=== PATIENT | male | born 1945 | race Caucasian/White ===

== ENCOUNTER 2018-03-06 06:49 | Inpatient (IN) ==
[2018-03-06] MEDS ORDERED: CLOPIDOGREL 75 MG TABLET PO STA (07:14)
[2018-03-06] MEDS ORDERED: ENOXAPARIN 100 MG/ML SYRINGE SUBCUT STA (07:15)
[2018-03-06] MEDS ORDERED: fentaNYL 100 MCG/2 ML VIAL IV STA (07:15)
[2018-03-06] MEDS ORDERED: ONDANSETRON 4 MG/2 ML VIAL IV STA (07:15)
[2018-03-06] MEDS ORDERED: NITROGLYCERIN 2% OINT 1 INCH/GM PACK TOP STA (07:15)
[2018-03-06 07:23] LABS: Basophils # 0.1 10*3/uL (0.0-0.2); Basophils % 0.5 % (0.0-0.8); Eosinophils # 0.1 10*3/uL (0.0-0.87); Eosinophils % 0.9 % (0.00-10.9); Hematocrit 38.3 VOL% (42.0-52.0); Hemoglobin 13.5 GM/DL (14.0-18.0); Lymphocytes # 1.4 10*3/uL (1.4-4.0); Lymphocytes % 13.2 % (21.2-54.2); Mean Corpuscular HGB Conc 35.2 GM/DL (32-36); Mean Corpuscular Hemoglobin 31 PG (27-34); Mean Corpuscular Volume 87.8 FL (87-102); Mean Platelet Volume 9.5 FL (9.6-12.0); Monocytes % 10.1 % (1.7-12.7); Neutrophils # 7.7 10*3/uL (1.4-7.4); Neutrophils % 74.3 % (38.7-73.9); Platelet Count 185 T/CUMM (130-400); Red Blood Count 4.36 MC/CUMM (3.8-5.5); Red Cell Distribution Width 12.4 % (9.3-17.3); White Blood Count 10.3 T/CUMM (4-12)
[2018-03-06 07:33] LABS: PT Patient Result 10.7 SECS; Partial Thromboplastin Time 28.3 SECS (0-40)
[2018-03-06 07:41] LABS: Albumin 3.6 G/DL (3.4-5.0); Bilirubin,Total 0.4 MG/DL (0.2-1.0); Calcium 9.1 MG/DL (8.5-10.1); Osmolality,Calculated 253.4 MOS/KG (273-304); Potassium 4.2 MMOL/L (3.5-5.1); Total Protein 6.9 G/DL (6.4-8.3)
[2018-03-06] MEDS ORDERED: diphenhydrAMINE CAP 25 MG CAPSULE PO PRN (08:19)
[2018-03-06] MEDS ORDERED: MAGNESIUM SULF RIDER 4 GM in PREMIX 1 EACH IV PRN (08:19)
[2018-03-06] MEDS ORDERED: MAGNESIUM SULF RIDER 2 GM in PREMIX 1 EACH IV PRN (08:19)
[2018-03-06] MEDS ORDERED: POTASSIUM CHLORIDE 20 MEQ TABLET PO PRN (08:19)
[2018-03-06] MEDS ORDERED: DOCUSATE SODIUM 100 MG CAPSULE PO PRN (08:19)
[2018-03-06] MEDS ORDERED: ZALEPLON 5 MG CAPSULE PO PRN (08:19)
[2018-03-06] MEDS ORDERED: guaiFENesin/DM ER 600-30 MG TABLET PO PRN (08:19)
[2018-03-06] MEDS ORDERED: ONDANSETRON 4 MG/2 ML VIAL IV PRN (08:19)
[2018-03-06] MEDS ORDERED: BISACODYL 5 MG TABLET PO PRN (08:19)
[2018-03-06] MEDS ORDERED: PROMETHAZINE 25 MG TABLET PO PRN (08:19)
[2018-03-06] MEDS ORDERED: PANTOPRAZOLE 40 MG TABLET PO SCH (09:00)
[2018-03-06] MEDS: ACETAMINOPHEN 325 MG TABLET PO SCH ×2 (10:50→21:15)
[2018-03-06] MEDS: amLODIPine 5 MG TABLET PO SCH (10:51)
[2018-03-06] MEDS ORDERED: NITROGLYCERIN 2% OINT 1 INCH/GM PACK TOP SCH (12:00)
[2018-03-06 13:11] LABS: Risk Ratio 6.52; Thyroid Stimulating Hormone 4.18 uIU/ml (0.358-3.74); VLDL CHOLESTEROL 106.6 MG/DL
[2018-03-06 13:16] LABS: Troponin I < 0.015 NG/ML (0.00-0.045)
[2018-03-06] MEDS: LIDOCAINE 5% PATCH TRANSDERM SCH (14:43)
[2018-03-06] MEDS ORDERED: methylPREDNISolone ACETATE 40 MG/1 ML VIAL MISC INJ ONE (16:02)
[2018-03-06] MEDS ORDERED: LIDOCAINE 1% 20 ML VIAL MISC INJ ONE (16:05)
[2018-03-06] MEDS: MAGNESIUM GLUCONATE 200 MG/ML 30 ML/BOTTLE PO SCH ×2 (16:15→21:14)
[2018-03-06 18:21] LABS: Apearance,Urine CLEAR (Clear); Bilirubin,Urine Negative (Negative); Blood, Urine Negative (Negative); Glucose,Urine (UA) Negative (Negative); Hyaline Casts,Urine 3 /LPF (0-3); Ketones,Urine Negative (Negative); Mucus,Urine Occasional /LPF (Occasional); Nitrite,Urine Negative (Negative); Protein,Urine 100 MG/DL; RBC,Urine 1 /HPF (0-4); Squamous Epithelial Cell,Urine Occasional /HPF (0-10); Urine Color Yellow (Yellow); Urine Specific Gravity 1.021 (1.001-1.035); Urine Urobilinogen < 2.0 EU/DL (0.2-1.0); WBC,Urine 1 /HPF (0-6)
[2018-03-06] MEDS ORDERED: diphenhydrAMINE CAP 25 MG CAPSULE PO SCH (21:00)
[2018-03-06] MEDS ORDERED: ISOSORBIDE MONONITRATE 30 MG TABLET PO SCH (21:00)
[2018-03-06] MEDS ORDERED: MULTIVITAMIN (CENTRUM) TABLET PO SCH (21:00)
[2018-03-06] MEDS ORDERED: FEBUXOSTAT 80 MG TABLET PO SCH (21:00)
[2018-03-06] MEDS ORDERED: MAGNESIUM OXIDE 400 MG TABLET PO SCH (21:00)
[2018-03-06] MEDS ORDERED: DILTIAZEM CD 120 MG CAPSULE PO SCH (21:00)
[2018-03-06] MEDS: FAMOTIDINE 20 MG TABLET PO SCH (21:13)
[2018-03-06] MEDS: NEBIVOLOL 10 MG TABLET PO SCH (21:13)
[2018-03-07 05:09] LABS: Basophils % 0.3 % (0.0-0.8); Eosinophils % 0.3 % (0.00-10.9); Hematocrit 34.7 VOL% (42.0-52.0); Hemoglobin 11.9 GM/DL (14.0-18.0); Immature Granulocytes % 1.2 %; Immature Granulocytes Absolute 0.09 #; Lymphocytes # 0.9 10*3/uL (1.4-4.0); Lymphocytes % 11.3 % (21.2-54.2); Mean Corpuscular HGB Conc 34.3 GM/DL (32-36); Mean Corpuscular Hemoglobin 31 PG (27-34); Mean Platelet Volume 9.8 FL (9.6-12.0); Monocytes # 0.9 10*3/uL (0.11-0.8); Monocytes % 11.5 % (1.7-12.7); Neutrophils # 5.9 10*3/uL (1.4-7.4); Neutrophils % 75.4 % (38.7-73.9); Platelet Count 172 T/CUMM (130-400); Red Cell Distribution Width 12.3 % (9.3-17.3); White Blood Count 7.8 T/CUMM (4-12)
[2018-03-07 05:28] LABS: Albumin 3.1 G/DL (3.4-5.0); Bilirubin,Total 1.1 MG/DL (0.2-1.0); Calcium 8.5 MG/DL (8.5-10.1); Osmolality,Calculated 251.6 MOS/KG (273-304); Potassium 4.6 MMOL/L (3.5-5.1); Total Protein 6.6 G/DL (6.4-8.3)
[2018-03-07] MEDS ORDERED: LEVOTHYROXINE 88 MCG TABLET PO SCH (07:00)
[2018-03-07 08:38] VITALS: BP 184/83
[2018-03-07] MEDS ORDERED: CYANOCOBALAMIN 500 MCG TABLET PO SCH (09:00)
[2018-03-07] MEDS ORDERED: CLOPIDOGREL 75 MG TABLET PO SCH (09:00)
[2018-03-07] MEDS ORDERED: ENOXAPARIN 40 MG/0.4 ML SYRINGE SUBCUT SCH (09:00)
[2018-03-07] MEDS ORDERED: OMEGA 3 ACID ETHYL ESTERS 1 GM CAPSULE PO SCH (09:00)
[2018-03-07] MEDS ORDERED: ASPIRIN 325 MG TABLET PO SCH (09:00)
[2018-03-07] MEDS ORDERED: buPROPion SR 150 MG TABLET PO SCH (09:00)
[2018-03-07] MEDS: MAGNESIUM GLUCONATE 200 MG/ML 30 ML/BOTTLE PO SCH (09:17)
[2018-03-07] MEDS: LIDOCAINE 5% PATCH TRANSDERM SCH (09:17)
[2018-03-07] MEDS: NEBIVOLOL 10 MG TABLET PO SCH (09:18)
[2018-03-07] MEDS: FAMOTIDINE 20 MG TABLET PO SCH (09:18)
[2018-03-07] MEDS: amLODIPine 5 MG TABLET PO SCH (09:19)
[2018-03-07] MEDS: ACETAMINOPHEN 325 MG TABLET PO SCH (09:20)
== END 2018-03-07 12:05 | disposition home or self-care (01) | DRG 313 ==
LOC: N.EDINP 06:49 → N.ED 06:49 → N.TELEN 09:02
PROVIDERS: ADMIT Internal Medicine Cardiovascular Disease; ATTEND Internal Medicine Cardiovascular Disease

== ENCOUNTER 2020-04-21 08:29 | Inpatient (IN) ==
[2020-04-21 09:12] LABS: Basophils % 0.3 % (0.0-0.8); Eosinophils # 0.1 10*3/uL (0.0-0.87); Hematocrit 37.6 VOL% (42.0-52.0); Hemoglobin 11.8 GM/DL (14.0-18.0); Immature Granulocytes % 0.9 %; Lymphocytes # 1.6 10*3/uL (1.4-4.0); Lymphocytes % 14.1 % (21.2-54.2); Mean Corpuscular HGB Conc 31.4 GM/DL (32-36); Mean Corpuscular Volume 92.2 FL (87-102); Monocytes % 8.9 % (1.7-12.7); Neutrophils % 74.8 % (38.7-73.9); Platelet Count 230 T/CUMM (130-400); Red Blood Count 4.08 MC/CUMM (3.8-5.5); Red Cell Distribution Width 15.6 % (9.3-17.3); White Blood Count 11.6 T/CUMM (4-12)
[2020-04-21 09:23] LABS: Albumin 3.3 G/DL (3.4-5.0); Bilirubin,Total 0.7 MG/DL (0.2-1.0); Calcium 9.9 MG/DL (8.5-10.1); Osmolality,Calculated 274.5 MOS/KG (273-304); Potassium 5.2 MMOL/L (3.5-5.1); Total Protein 7.4 G/DL (6.4-8.3)
[2020-04-21 10:23] LABS: ABG Base Excess 3.3 MMOL/L (-2.5-2.5); ABG HCO3 26.6 MMOL/L (20-26); ABG Oxygen Saturation 61.5 % (95-100); ABG PCO2 51.8 MM HG (35-48); ABG PH 7.367 (7.35-7.45); ABG TCO2 26.8 MMOL/L (23-27)
[2020-04-21 10:25] LABS: ABG PO2 34.7 MM HG (80-95)
[2020-04-21] MEDS ORDERED: ONDANSETRON 4 MG/2 ML VIAL IV PRN (11:18)
[2020-04-21] MEDS ORDERED: GLUCAGON 1 MG VIAL IM PRN (11:18)
[2020-04-21] MEDS ORDERED: ACETAMINOPHEN 325 MG TABLET PO PRN (11:18)
[2020-04-21] MEDS ORDERED: DEXTROSE 50% 25 GM/50 ML VIAL IV PRN (11:18)
[2020-04-21] MEDS ORDERED: cefTRIAXone 1,000 MG in SODIUM CHLORIDE 0.9% 100 ML IV STA (11:29)
[2020-04-21 11:52] LABS: ABG Base Excess 2.6 MMOL/L (-2.5-2.5); ABG HCO3 26.8 MMOL/L (20-26); ABG Oxygen Saturation 98.3 % (95-100); ABG PCO2 44.4 MM HG (35-48); ABG PH 7.405 (7.35-7.45); ABG TCO2 24.7 MMOL/L (23-27)
[2020-04-21] MEDS: AZITHROMYCIN INJ 500 MG in SODIUM CHLORIDE 0.9% 250 ML IV SCH (11:59)
[2020-04-21] MEDS: ENOXAPARIN 30 MG/0.3 ML SYRINGE SUBCUT SCH (12:00)
[2020-04-21] MEDS ORDERED: FUROSEMIDE 40 MG/4 ML VIAL IV STA (12:11)
[2020-04-21] MEDS ORDERED: NITROGLYCERIN SL 0.4 MG TABLET SL PRN (15:54)
[2020-04-21] MEDS: oxyCODONE/ACETAMINOPHEN 5-325 MG TABLET PO SCH (17:11)
[2020-04-21] MEDS: ALBUTEROL/IPRATROPIUM 3 ML NEB RESP TX SCH (19:32)
[2020-04-21] MEDS: ZINC GLUCONATE 50 MG TABLET PO SCH (20:24)
[2020-04-21] MEDS: NEBIVOLOL 10 MG TABLET PO SCH (20:24)
[2020-04-21] MEDS: MAGNESIUM OXIDE 400 MG TABLET PO SCH (20:24)
[2020-04-21] MEDS: DILTIAZEM CD 120 MG CAPSULE PO SCH (20:24)
[2020-04-21] MEDS: ASCORBIC ACID 500 MG TABLET PO SCH (20:25)
[2020-04-21] MEDS: CHOLECALCIFEROL 5,000 UNIT TABLET PO SCH (20:25)
[2020-04-21] MEDS: ISOSORBIDE MONONITRATE 30 MG TABLET PO SCH (20:25)
[2020-04-21] MEDS: MULTIVITAMIN (CENTRUM) TABLET PO SCH (20:26)
[2020-04-21] MEDS: FENOFIBRATE 145 MG TABLET PO SCH (20:26)
[2020-04-21] MEDS: POTASSIUM GLUCONATE 500 MG TABLET PO SCH (20:26)
[2020-04-22] MEDS: ALBUTEROL/IPRATROPIUM 3 ML NEB RESP TX SCH ×4 (00:41→18:45)
[2020-04-22] MEDS: oxyCODONE/ACETAMINOPHEN 5-325 MG TABLET PO SCH ×2 (04:31→15:10)
[2020-04-22 06:13] LABS: Basophils % 0.2 % (0.0-0.8); Eosinophils # 0.1 10*3/uL (0.0-0.87); Eosinophils % 1.4 % (0.00-10.9); Hematocrit 33.1 VOL% (42.0-52.0); Hemoglobin 10.2 GM/DL (14.0-18.0); Immature Granulocytes % 0.7 %; Immature Granulocytes Absolute 0.06 #; Lymphocytes # 1.4 10*3/uL (1.4-4.0); Lymphocytes % 16.7 % (21.2-54.2); Mean Corpuscular HGB Conc 30.8 GM/DL (32-36); Mean Platelet Volume 10.9 FL (9.6-12.0); Platelet Count 218 T/CUMM (130-400); Red Blood Count 3.52 MC/CUMM (3.8-5.5); Red Cell Distribution Width 15.7 % (9.3-17.3); White Blood Count 8.5 T/CUMM (4-12)
[2020-04-22 06:34] LABS: Calcium 9.7 MG/DL (8.5-10.1); Osmolality,Calculated 277.5 MOS/KG (273-304); Potassium 5.1 MMOL/L (3.5-5.1)
[2020-04-22] MEDS: MAGNESIUM OXIDE 400 MG TABLET PO SCH ×2 (08:29→20:56)
[2020-04-22] MEDS: ASCORBIC ACID 500 MG TABLET PO SCH ×2 (08:29→20:57)
[2020-04-22] MEDS: buPROPion SR 150 MG TABLET PO SCH (08:29)
[2020-04-22] MEDS: ZINC GLUCONATE 50 MG TABLET PO SCH ×2 (08:29→20:56)
[2020-04-22] MEDS: NEBIVOLOL 10 MG TABLET PO SCH ×2 (08:30→20:56)
[2020-04-22] MEDS: CHOLECALCIFEROL 5,000 UNIT TABLET PO SCH ×2 (08:30→20:57)
[2020-04-22] MEDS: LEVOTHYROXINE 112 MCG TABLET PO SCH (08:30)
[2020-04-22] MEDS: ASPIRIN CHEW 81 MG TABLET PO SCH (08:30)
[2020-04-22] MEDS: POTASSIUM GLUCONATE 500 MG TABLET PO SCH ×2 (08:32→20:56)
[2020-04-22] MEDS ORDERED: CLOPIDOGREL 75 MG TABLET PO SCH (09:00)
[2020-04-22] MEDS: AZITHROMYCIN INJ 500 MG in SODIUM CHLORIDE 0.9% 250 ML IV SCH (12:00)
[2020-04-22] MEDS: ENOXAPARIN 30 MG/0.3 ML SYRINGE SUBCUT SCH (12:00)
[2020-04-22] MEDS: APIXABAN 5 MG TABLET PO SCH ×2 (13:46→20:57)
[2020-04-22] MEDS: FENOFIBRATE 145 MG TABLET PO SCH (20:56)
[2020-04-22] MEDS: ISOSORBIDE MONONITRATE 30 MG TABLET PO SCH (20:56)
[2020-04-22] MEDS: MULTIVITAMIN (CENTRUM) TABLET PO SCH (20:56)
[2020-04-22] MEDS: DILTIAZEM CD 120 MG CAPSULE PO SCH (20:57)
[2020-04-23] MEDS: ALBUTEROL/IPRATROPIUM 3 ML NEB RESP TX SCH ×3 (00:50→13:15)
[2020-04-23] MEDS: oxyCODONE/ACETAMINOPHEN 5-325 MG TABLET PO SCH (03:58)
[2020-04-23 05:36] LABS: Basophils # 0.1 10*3/uL (0.0-0.2); Basophils % 0.6 % (0.0-0.8); Eosinophils # 0.2 10*3/uL (0.0-0.87); Hematocrit 33.2 VOL% (42.0-52.0); Hemoglobin 10.5 GM/DL (14.0-18.0); Immature Granulocytes % 0.7 %; Immature Granulocytes Absolute 0.06 #; Lymphocytes # 1.3 10*3/uL (1.4-4.0); Lymphocytes % 14.1 % (21.2-54.2); Mean Corpuscular HGB Conc 31.6 GM/DL (32-36); Mean Corpuscular Volume 92.5 FL (87-102); Monocytes % 10.6 % (1.7-12.7); Platelet Count 234 T/CUMM (130-400); Red Blood Count 3.59 MC/CUMM (3.8-5.5); Red Cell Distribution Width 15.4 % (9.3-17.3); White Blood Count 8.9 T/CUMM (4-12)
[2020-04-23 06:02] LABS: Calcium 9.7 MG/DL (8.5-10.1); Osmolality,Calculated 280.5 MOS/KG (273-304); Potassium 5.3 MMOL/L (3.5-5.1)
[2020-04-23] MEDS: MAGNESIUM OXIDE 400 MG TABLET PO SCH (09:17)
[2020-04-23] MEDS: NEBIVOLOL 10 MG TABLET PO SCH (09:17)
[2020-04-23] MEDS: ZINC GLUCONATE 50 MG TABLET PO SCH (09:17)
[2020-04-23] MEDS: ASPIRIN CHEW 81 MG TABLET PO SCH (09:17)
[2020-04-23] MEDS: CHOLECALCIFEROL 5,000 UNIT TABLET PO SCH (09:17)
[2020-04-23] MEDS: LEVOTHYROXINE 112 MCG TABLET PO SCH (09:17)
[2020-04-23] MEDS: ASCORBIC ACID 500 MG TABLET PO SCH (09:18)
[2020-04-23] MEDS: buPROPion SR 150 MG TABLET PO SCH (09:18)
[2020-04-23] MEDS: APIXABAN 5 MG TABLET PO SCH (09:18)
[2020-04-23] MEDS: POTASSIUM GLUCONATE 500 MG TABLET PO SCH (09:19)
[2020-04-23] MEDS: AZITHROMYCIN INJ 500 MG in SODIUM CHLORIDE 0.9% 250 ML IV SCH (11:11)
[2020-04-23 12:13] VITALS: BP 143/76
== END 2020-04-23 15:00 | disposition home or self-care (01) | DRG 291 ==
LOC: N.EDINP 08:29 → N.ED 08:29 → N.TELES 13:39
PROVIDERS: ADMIT Internal Medicine; ATTEND Internal Medicine

== ENCOUNTER 2020-12-20 14:43 | Inpatient (IN) ==
[2020-12-20 15:31] LABS: Basophils % 0.2 % (0.0-0.8); Eosinophils % 0.4 % (0.00-10.9); Hematocrit 38.9 VOL% (42.0-52.0); Hemoglobin 12.2 GM/DL (14.0-18.0); Immature Granulocytes % 0.8 %; Immature Granulocytes Absolute 0.09 #; Lymphocytes # 1.5 10*3/uL (1.4-4.0); Mean Corpuscular HGB Conc 31.4 GM/DL (32-36); Mean Corpuscular Volume 90.9 FL (87-102); Monocytes % 11.4 % (1.7-12.7); Neutrophils % 74.2 % (38.7-73.9); Platelet Count 290 T/CUMM (130-400); Red Blood Count 4.28 MC/CUMM (3.8-5.5); Red Cell Distribution Width 16.2 % (9.3-17.3); White Blood Count 11.4 T/CUMM (4-12)
[2020-12-20 15:51] LABS: Albumin 3.6 G/DL (3.4-5.0); Bilirubin,Total 0.5 MG/DL (0.20-1.00); Calcium 10.7 MG/DL (8.5-10.1); Osmolality,Calculated 272.7 MOS/KG (273-304); Potassium 4.1 MMOL/L (3.5-5.1); Total Protein 8.9 G/DL (6.4-8.2)
[2020-12-20] MEDS ORDERED: ACETAMINOPHEN 325 MG TABLET PO ONE (16:17)
[2020-12-20] MEDS ORDERED: PROMETHAZINE 25 MG/1 ML VIAL IM STA (16:18)
[2020-12-20] MEDS ORDERED: ASPIRIN 325 MG TABLET PO STA (17:13)
[2020-12-20] MEDS ORDERED: DEXTROSE 50% 25 GM/50 ML VIAL IV PRN (17:38)
[2020-12-20] MEDS ORDERED: ONDANSETRON 4 MG/2 ML VIAL IV PRN (17:38)
[2020-12-20] MEDS ORDERED: GLUCAGON 1 MG VIAL IM PRN (17:38)
[2020-12-20] MEDS ORDERED: oxyCODONE/ACETAMINOPHEN 5-325 MG TABLET PO PRN (17:46)
[2020-12-20] MEDS: METOPROLOL TARTRATE 25 MG TABLET PO SCH (20:30)
[2020-12-20] MEDS: ENOXAPARIN 100 MG/ML SYRINGE SUBCUT SCH (20:31)
[2020-12-20] MEDS: DILTIAZEM CD 120 MG CAPSULE PO SCH (20:31)
[2020-12-20] MEDS: hydrALAZINE 20 MG/1 ML VIAL IV PRN (20:32)
[2020-12-20] MEDS ORDERED: ISOSORBIDE MONONITRATE 30 MG TABLET PO SCH (21:00)
[2020-12-21] MEDS: oxyCODONE/ACETAMINOPHEN 5-325 MG TABLET PO PRN ×2 (05:34→17:21)
[2020-12-21 05:43] LABS: Basophils % 0.2 % (0.0-0.8); Eosinophils # 0.1 10*3/uL (0.0-0.87); Eosinophils % 0.5 % (0.00-10.9); Hematocrit 37.2 VOL% (42.0-52.0); Hemoglobin 12.2 GM/DL (14.0-18.0); Immature Granulocytes % 0.8 %; Immature Granulocytes Absolute 0.08 #; Lymphocytes # 1.5 10*3/uL (1.4-4.0); Lymphocytes % 16.1 % (21.2-54.2); Mean Corpuscular HGB Conc 32.8 GM/DL (32-36); Mean Corpuscular Volume 89.6 FL (87-102); Mean Platelet Volume 10.1 FL (9.6-12.0); Monocytes % 10.9 % (1.7-12.7); Neutrophils % 71.5 % (38.7-73.9); Platelet Count 265 T/CUMM (130-400); Red Blood Count 4.15 MC/CUMM (3.8-5.5); White Blood Count 9.5 T/CUMM (4-12)
[2020-12-21 06:21] LABS: Bilirubin,Total 0.5 MG/DL (0.20-1.00); Calcium 10.1 MG/DL (8.5-10.1); Osmolality,Calculated 277.2 MOS/KG (273-304); Risk Ratio 5.68; Thyroid Stimulating Hormone 4.56 uIU/ml (0.358-3.74); VLDL Cholesterol 44.8 MG/DL
[2020-12-21] MEDS: METOPROLOL TARTRATE 25 MG TABLET PO SCH ×2 (09:37→20:47)
[2020-12-21] MEDS: CLOPIDOGREL 75 MG TABLET PO SCH (09:37)
[2020-12-21] MEDS: ENOXAPARIN 100 MG/ML SYRINGE SUBCUT SCH ×2 (09:38→20:48)
[2020-12-21] MEDS: DILTIAZEM CD 120 MG CAPSULE PO SCH (20:47)
[2020-12-21] MEDS ORDERED: allopurinoL 300 MG TABLET PO SCH (21:00)
[2020-12-21] MEDS: ACETAMINOPHEN 325 MG TABLET PO PRN (22:22)
[2020-12-22] MEDS: hydrALAZINE 20 MG/1 ML VIAL IV PRN (03:22)
[2020-12-22] MEDS: ACETAMINOPHEN 325 MG TABLET PO PRN ×2 (03:22→10:14)
[2020-12-22] MEDS: oxyCODONE/ACETAMINOPHEN 5-325 MG TABLET PO PRN (04:37)
[2020-12-22 05:11] LABS: Basophils % 0.4 % (0.0-0.8); Eosinophils % 0.3 % (0.00-10.9); Hematocrit 37.9 VOL% (42.0-52.0); Hemoglobin 12.1 GM/DL (14.0-18.0); Immature Granulocytes Absolute 0.09 #; Lymphocytes # 1.3 10*3/uL (1.4-4.0); Lymphocytes % 14.4 % (21.2-54.2); Mean Corpuscular HGB Conc 31.9 GM/DL (32-36); Mean Corpuscular Volume 89.6 FL (87-102); Mean Platelet Volume 10.2 FL (9.6-12.0); Monocytes % 10.9 % (1.7-12.7); Platelet Count 289 T/CUMM (130-400); Red Blood Count 4.23 MC/CUMM (3.8-5.5); Red Cell Distribution Width 16.1 % (9.3-17.3)
[2020-12-22 05:27] LABS: Calcium 9.8 MG/DL (8.5-10.1); Osmolality,Calculated 278.1 MOS/KG (273-304); Potassium 3.7 MMOL/L (3.5-5.1)
[2020-12-22] MEDS: ENOXAPARIN 100 MG/ML SYRINGE SUBCUT SCH (08:23)
[2020-12-22] MEDS: CLOPIDOGREL 75 MG TABLET PO SCH (08:23)
[2020-12-22] MEDS: METOPROLOL TARTRATE 25 MG TABLET PO SCH (08:23)
[2020-12-22] MEDS ORDERED: POTASSIUM CHLORIDE 20 MEQ TABLET PO ONE (09:42)
[2020-12-22] MEDS ORDERED: CYCLOBENZAPRINE 10 MG TABLET PO SCH (15:00)
[2020-12-22 16:05] VITALS: BP 162/95
== END 2020-12-22 16:33 | disposition home or self-care (01) | DRG 281 ==
LOC: N.EDINP 14:43 → N.ED 14:43 → N.TELEN 19:23 → SUATTDRO 12-21 12:32
PROVIDERS: ADMIT Emergency Medicine; ATTEND Internal Medicine

== ENCOUNTER 2020-12-27 18:26 | Inpatient (IN) ==
[2020-12-27] MEDS ORDERED: GLUCAGON 1 MG VIAL IM PRN (21:02)
[2020-12-27] MEDS ORDERED: DEXTROSE 50% 25 GM/50 ML VIAL IV PRN (21:02)
[2020-12-27 22:27] LABS: Basophils % 0.2 % (0.0-0.8); Eosinophils % 0.1 % (0.00-10.9); Hematocrit 34.1 VOL% (42.0-52.0); Hemoglobin 10.4 GM/DL (14.0-18.0); Immature Granulocytes % 1.6 %; Lymphocytes # 0.9 10*3/uL (1.4-4.0); Lymphocytes % 7.4 % (21.2-54.2); Mean Corpuscular HGB Conc 30.5 GM/DL (32-36); Mean Corpuscular Volume 93.4 FL (87-102); Mean Platelet Volume 10.2 FL (9.6-12.0); Monocytes % 10.4 % (1.7-12.7); Neutrophils % 80.3 % (38.7-73.9); Platelet Count 332 T/CUMM (130-400); Red Blood Count 3.65 MC/CUMM (3.8-5.5); Red Cell Distribution Width 17.1 % (9.3-17.3); White Blood Count 12.8 T/CUMM (4-12)
[2020-12-27 23:02] LABS: Bilirubin,Total 0.5 MG/DL (0.20-1.00); Calcium 9.7 MG/DL (8.5-10.1); Osmolality,Calculated 288.4 MOS/KG (273-304); Potassium 4.9 MMOL/L (3.5-5.1); Total Protein 7.6 G/DL (6.4-8.2)
[2020-12-27] MEDS ORDERED: ALBUTEROL 2.5 MG/3 ML NEB RESP TX ONE (23:48)
[2020-12-28] MEDS: ALBUTEROL 2.5 MG/3 ML NEB RESP TX SCH ×4 (00:12→21:53)
[2020-12-28] MEDS: LACTATED RINGERS 1,000 ML IV SCH ×2 (01:26→08:40)
[2020-12-28] MEDS: DILTIAZEM CD 120 MG CAPSULE PO SCH ×2 (01:26→20:12)
[2020-12-28] MEDS ORDERED: VANCOMYCIN INJ 1,500 MG in SODIUM CHLORIDE 0.9% 500 ML IV SCH (02:00)
[2020-12-28] MEDS: VANCOMYCIN INJ 1,500 MG in SODIUM CHLORIDE 0.9% 500 ML IV SCH (02:54)
[2020-12-28] MEDS: DOXYCYCLINE HYCLATE INJ 100 MG in SODIUM CHLORIDE 0.9% 100 ML IV SCH ×2 (03:01→16:47)
[2020-12-28] MEDS ORDERED: FUROSEMIDE 40 MG/4 ML VIAL ONE (07:30)
[2020-12-28] MEDS ORDERED: FUROSEMIDE 40 MG/4 ML VIAL IV ONE (07:35)
[2020-12-28] MEDS ORDERED: METOPROLOL TARTRATE 5 MG/5 ML VIAL IV ONE ×2 (07:36→08:36)
[2020-12-28 07:46] LABS: ABG Base Excess 0.5 MMOL/L (-2.5-2.5); ABG HCO3 24.9 MMOL/L (20-26); ABG Oxygen Saturation 97.7 % (95-100); ABG PCO2 34.1 MM HG (35-48); ABG PH 7.456 (7.35-7.45); ABG PO2 94.5 MM HG (80-95); ABG TCO2 21.9 MMOL/L (23-27)
[2020-12-28] MEDS ORDERED: DILTIAZEM 30 MG TABLET PO ONE (07:54)
[2020-12-28] MEDS: DILTIAZEM INJ 100 MG in SODIUM CHLORIDE 0.9% 100 ML IV SCH ×2 (12:37→19:55)
[2020-12-28] MEDS ORDERED: LORazepam 2 MG/1 ML VIAL IV ONE (12:46)
[2020-12-28] MEDS: ASPIRIN CHEW 81 MG TABLET PO SCH (13:50)
[2020-12-28] MEDS: CLOPIDOGREL 75 MG TABLET PO SCH (13:51)
[2020-12-28] MEDS ORDERED: cefTRIAXone 1,000 MG in SYRINGE 1 EACH IV SCH (16:00)
[2020-12-28] MEDS: FUROSEMIDE 40 MG/4 ML VIAL IV SCH (17:37)
[2020-12-28] MEDS ORDERED: SODIUM CHLORIDE 0.9% 100 ML IV ONE (17:44)
[2020-12-28] MEDS ORDERED: METOPROLOL TARTRATE 5 MG/5 ML VIAL IV PRN (20:10)
[2020-12-28] MEDS ORDERED: DIGOXIN 0.5 MG/2 ML AMP IV ONE (20:11)
[2020-12-29] MEDS: DILTIAZEM INJ 100 MG in SODIUM CHLORIDE 0.9% 100 ML IV SCH ×2 (01:10→07:33)
[2020-12-29] MEDS: ALBUTEROL 2.5 MG/3 ML NEB RESP TX SCH ×4 (01:34→19:58)
[2020-12-29] MEDS: DOXYCYCLINE HYCLATE INJ 100 MG in SODIUM CHLORIDE 0.9% 100 ML IV SCH ×2 (02:47→15:28)
[2020-12-29] MEDS: VANCOMYCIN INJ 1,500 MG in SODIUM CHLORIDE 0.9% 500 ML IV SCH (04:07)
[2020-12-29] MEDS: ASPIRIN CHEW 81 MG TABLET PO SCH (09:17)
[2020-12-29] MEDS: CLOPIDOGREL 75 MG TABLET PO SCH (09:17)
[2020-12-29] MEDS: FUROSEMIDE 40 MG/4 ML VIAL IV SCH ×2 (09:17→17:13)
[2020-12-29] MEDS: ceFAZolin 2,000 MG/50 ML DUPLEX IV SCH ×2 (10:05→17:15)
[2020-12-29] MEDS ORDERED: POLYETHYLENE GLYCOL POWDER 17 GM PACK PO PRN (10:42)
[2020-12-29] MEDS: DOCUSATE SODIUM 100 MG CAPSULE PO SCH ×2 (11:17→20:49)
[2020-12-29 13:02] LABS: Calcium 8.8 MG/DL (8.5-10.1); Osmolality,Calculated 316.8 MOS/KG (273-304); Potassium 4.3 MMOL/L (3.5-5.1)
[2020-12-29] MEDS: METOPROLOL TARTRATE 5 MG/5 ML VIAL IV SCH (17:13)
[2020-12-29] MEDS: ACYCLOVIR IV SCH (17:20)
[2020-12-29] MEDS: SODIUM CHLORIDE 0.9% IV SCH (17:20)
[2020-12-29] MEDS: DILTIAZEM CD 120 MG CAPSULE PO SCH (20:49)
[2020-12-30] MEDS: ALBUTEROL 2.5 MG/3 ML NEB RESP TX SCH ×4 (00:57→19:57)
[2020-12-30] MEDS: METOPROLOL TARTRATE 5 MG/5 ML VIAL IV SCH ×2 (01:01→06:28)
[2020-12-30] MEDS: ceFAZolin 2,000 MG/50 ML DUPLEX IV SCH ×3 (01:01→16:47)
[2020-12-30] MEDS: ACETAMINOPHEN 325 MG TABLET PO PRN (01:19)
[2020-12-30] MEDS: DOXYCYCLINE HYCLATE INJ 100 MG in SODIUM CHLORIDE 0.9% 100 ML IV SCH ×2 (03:07→14:03)
[2020-12-30 05:11] LABS: Basophils % 0.1 % (0.0-0.8); Eosinophils # 0.1 10*3/uL (0.0-0.87); Eosinophils % 0.3 % (0.00-10.9); Hematocrit 28.3 VOL% (42.0-52.0); Hemoglobin 8.9 GM/DL (14.0-18.0); Immature Granulocytes Absolute 0.16 #; Lymphocytes # 1.3 10*3/uL (1.4-4.0); Lymphocytes % 8.3 % (21.2-54.2); Mean Corpuscular HGB Conc 31.4 GM/DL (32-36); Mean Corpuscular Volume 90.1 FL (87-102); Mean Platelet Volume 10.9 FL (9.6-12.0); Monocytes % 6.9 % (1.7-12.7); Neutrophils % 83.4 % (38.7-73.9); Platelet Count 402 T/CUMM (130-400); Red Blood Count 3.14 MC/CUMM (3.8-5.5); Red Cell Distribution Width 17.5 % (9.3-17.3); White Blood Count 15.5 T/CUMM (4-12)
[2020-12-30 05:24] LABS: Calcium 9.6 MG/DL (8.5-10.1); Osmolality,Calculated 305.7 MOS/KG (273-304); Potassium 3.7 MMOL/L (3.5-5.1)
[2020-12-30] MEDS: ACYCLOVIR IV SCH ×2 (06:31→18:12)
[2020-12-30] MEDS: SODIUM CHLORIDE 0.9% IV SCH ×2 (06:31→18:12)
[2020-12-30] MEDS: FUROSEMIDE 40 MG/4 ML VIAL IV SCH (09:40)
[2020-12-30] MEDS: BACITRACIN OINT 0.9 GM PACK TOP SCH ×2 (09:52→22:19)
[2020-12-30] MEDS: DOCUSATE SODIUM 100 MG CAPSULE PO SCH ×2 (09:52→22:20)
[2020-12-30] MEDS: ASPIRIN CHEW 81 MG TABLET PO SCH (09:52)
[2020-12-30] MEDS: CLOPIDOGREL 75 MG TABLET PO SCH (09:52)
[2020-12-30] MEDS: METOPROLOL TARTRATE 25 MG TABLET PO SCH ×2 (11:35→22:21)
[2020-12-30] MEDS: SODIUM CHLORIDE 0.9% 1,000 ML IV SCH (11:35)
[2020-12-30] MEDS ORDERED: BISACODYL 10 MG SUPP RECTAL ONE (13:59)
[2020-12-30] MEDS ORDERED: risperiDONE 0.5 MG TABLET PO SCH (21:00)
[2020-12-30] MEDS: DILTIAZEM CD 120 MG CAPSULE PO SCH (22:19)
[2020-12-30] MEDS: LACTULOSE 20 GM/30 ML UDCUP PO SCH (22:20)
[2020-12-31] MEDS: ceFAZolin 2,000 MG/50 ML DUPLEX IV SCH ×3 (00:24→17:09)
[2020-12-31] MEDS: ALBUTEROL 2.5 MG/3 ML NEB RESP TX SCH ×4 (00:55→20:35)
[2020-12-31] MEDS: DOXYCYCLINE HYCLATE INJ 100 MG in SODIUM CHLORIDE 0.9% 100 ML IV SCH ×2 (03:35→14:03)
[2020-12-31 05:38] LABS: Basophils % 0.1 % (0.0-0.8); Eosinophils # 0.1 10*3/uL (0.0-0.87); Eosinophils % 0.4 % (0.00-10.9); Hematocrit 28.6 VOL% (42.0-52.0); Hemoglobin 8.9 GM/DL (14.0-18.0); Immature Granulocytes % 1.3 %; Immature Granulocytes Absolute 0.18 #; Lymphocytes # 1.1 10*3/uL (1.4-4.0); Lymphocytes % 7.7 % (21.2-54.2); Mean Corpuscular HGB Conc 31.1 GM/DL (32-36); Mean Corpuscular Volume 90.8 FL (87-102); Monocytes % 6.3 % (1.7-12.7); Neutrophils % 84.2 % (38.7-73.9); Platelet Count 376 T/CUMM (130-400); Red Blood Count 3.15 MC/CUMM (3.8-5.5); Red Cell Distribution Width 17.3 % (9.3-17.3); White Blood Count 13.6 T/CUMM (4-12)
[2020-12-31] MEDS: ACYCLOVIR IV SCH ×2 (05:56→19:07)
[2020-12-31] MEDS: SODIUM CHLORIDE 0.9% IV SCH ×2 (05:56→19:07)
[2020-12-31 05:58] LABS: Calcium 9.6 MG/DL (8.5-10.1); Osmolality,Calculated 301.5 MOS/KG (273-304)
[2020-12-31 06:03] LABS: Albumin 1.9 G/DL (3.4-5.0); Bilirubin,Total 0.4 MG/DL (0.20-1.00); Calcium 9.6 MG/DL (8.5-10.1); Osmolality,Calculated 303.4 MOS/KG (273-304); Total Protein 6.9 G/DL (6.4-8.2)
[2020-12-31] MEDS: METOPROLOL TARTRATE 25 MG TABLET PO SCH ×2 (09:24→23:26)
[2020-12-31] MEDS: CLOPIDOGREL 75 MG TABLET PO SCH (09:24)
[2020-12-31] MEDS: MEGESTROL 40 MG TABLET PO SCH (09:24)
[2020-12-31] MEDS: DOCUSATE SODIUM 100 MG CAPSULE PO SCH ×2 (09:24→23:26)
[2020-12-31] MEDS: ASPIRIN CHEW 81 MG TABLET PO SCH (09:24)
[2020-12-31] MEDS: BACITRACIN OINT 0.9 GM PACK TOP SCH ×2 (09:26→23:26)
[2020-12-31] MEDS: POLYETHYLENE GLYCOL POWDER 17 GM PACK PO SCH (09:27)
[2020-12-31] MEDS: LACTULOSE 20 GM/30 ML UDCUP PO SCH ×2 (09:35→23:26)
[2020-12-31] MEDS: SODIUM CHLORIDE 0.9% 1,000 ML IV SCH (14:41)
[2020-12-31] MEDS: ACETAMINOPHEN 325 MG TABLET PO PRN (15:21)
[2020-12-31] MEDS ORDERED: risperiDONE 1 MG TABLET PO SCH (21:00)
[2020-12-31] MEDS: DILTIAZEM CD 120 MG CAPSULE PO SCH (23:26)
[2021-01-01] MEDS: ceFAZolin 2,000 MG/50 ML DUPLEX IV SCH ×3 (00:44→16:08)
[2021-01-01] MEDS: ALBUTEROL 2.5 MG/3 ML NEB RESP TX SCH ×4 (01:49→20:08)
[2021-01-01] MEDS: DOXYCYCLINE HYCLATE INJ 100 MG in SODIUM CHLORIDE 0.9% 100 ML IV SCH ×2 (02:47→15:00)
[2021-01-01 04:59] LABS: Basophils % 0.3 % (0.0-0.8); Eosinophils # 0.1 10*3/uL (0.0-0.87); Hematocrit 26.7 VOL% (42.0-52.0); Hemoglobin 8.3 GM/DL (14.0-18.0); Immature Granulocytes % 2.4 %; Immature Granulocytes Absolute 0.33 #; Lymphocytes # 1.2 10*3/uL (1.4-4.0); Lymphocytes % 8.7 % (21.2-54.2); Mean Corpuscular HGB Conc 31.1 GM/DL (32-36); Mean Corpuscular Volume 89.9 FL (87-102); Mean Platelet Volume 10.9 FL (9.6-12.0); Monocytes % 6.3 % (1.7-12.7); Neutrophils % 81.3 % (38.7-73.9); Platelet Count 392 T/CUMM (130-400); Red Blood Count 2.97 MC/CUMM (3.8-5.5); Red Cell Distribution Width 17.2 % (9.3-17.3); White Blood Count 13.8 T/CUMM (4-12)
[2021-01-01 05:17] LABS: Calcium 9.4 MG/DL (8.5-10.1); Osmolality,Calculated 299.1 MOS/KG (273-304); Potassium 3.9 MMOL/L (3.5-5.1)
[2021-01-01 05:18] LABS: Albumin 1.8 G/DL (3.4-5.0); Bilirubin,Total 0.8 MG/DL (0.20-1.00); Calcium 9.5 MG/DL (8.5-10.1); Osmolality,Calculated 299.3 MOS/KG (273-304); Potassium 3.9 MMOL/L (3.5-5.1); Total Protein 6.6 G/DL (6.4-8.2)
[2021-01-01] MEDS: SODIUM CHLORIDE 0.9% 1,000 ML IV SCH (05:40)
[2021-01-01] MEDS: ACYCLOVIR IV SCH ×2 (06:25→18:24)
[2021-01-01] MEDS: SODIUM CHLORIDE 0.9% IV SCH ×2 (06:25→18:24)
[2021-01-01] MEDS: ASPIRIN CHEW 81 MG TABLET PO SCH (11:50)
[2021-01-01] MEDS: MEGESTROL 40 MG TABLET PO SCH (11:50)
[2021-01-01] MEDS: DOCUSATE SODIUM 100 MG CAPSULE PO SCH ×2 (11:50→20:49)
[2021-01-01] MEDS: METOPROLOL TARTRATE 25 MG TABLET PO SCH ×2 (11:50→20:50)
[2021-01-01] MEDS: LACTULOSE 20 GM/30 ML UDCUP PO SCH ×2 (11:51→20:50)
[2021-01-01] MEDS: BACITRACIN OINT 0.9 GM PACK TOP SCH ×2 (11:51→20:50)
[2021-01-01] MEDS: POLYETHYLENE GLYCOL POWDER 17 GM PACK PO SCH (12:25)
[2021-01-01] MEDS: CLOPIDOGREL 75 MG TABLET PO SCH (12:25)
[2021-01-01] MEDS: DIVALPROEX 500 MG TABLET PO SCH (14:46)
[2021-01-01] MEDS: HALOPERIDOL 5 MG TABLET PO SCH (20:50)
[2021-01-01] MEDS: DILTIAZEM CD 120 MG CAPSULE PO SCH (20:50)
[2021-01-01] MEDS ORDERED: DILTIAZEM 25 MG/5 ML VIAL IV ONE (23:55)
[2021-01-02] MEDS: DILTIAZEM INJ 100 MG in SODIUM CHLORIDE 0.9% 100 ML IV SCH ×2 (00:53→23:49)
[2021-01-02] MEDS: ceFAZolin 2,000 MG/50 ML DUPLEX IV SCH ×3 (00:59→17:30)
[2021-01-02] MEDS: ALBUTEROL 2.5 MG/3 ML NEB RESP TX SCH ×4 (01:35→19:07)
[2021-01-02] MEDS: SODIUM CHLORIDE 0.9% 1,000 ML IV SCH ×2 (03:58→23:49)
[2021-01-02] MEDS: DOXYCYCLINE HYCLATE INJ 100 MG in SODIUM CHLORIDE 0.9% 100 ML IV SCH ×2 (04:58→15:44)
[2021-01-02 05:15] LABS: Basophils # 0.1 10*3/uL (0.0-0.2); Basophils % 0.7 % (0.0-0.8); Eosinophils # 0.1 10*3/uL (0.0-0.87); Eosinophils % 0.7 % (0.00-10.9); Hematocrit 26.4 VOL% (42.0-52.0); Hemoglobin 8.2 GM/DL (14.0-18.0); Immature Granulocytes % 4.2 %; Immature Granulocytes Absolute 0.63 #; Lymphocytes # 1.4 10*3/uL (1.4-4.0); Lymphocytes % 9.3 % (21.2-54.2); Mean Corpuscular HGB Conc 31.1 GM/DL (32-36); Mean Platelet Volume 10.9 FL (9.6-12.0); Monocytes % 5.7 % (1.7-12.7); Neutrophils % 79.4 % (38.7-73.9); Platelet Count 444 T/CUMM (130-400); Red Cell Distribution Width 17.2 % (9.3-17.3); White Blood Count 14.9 T/CUMM (4-12)
[2021-01-02 05:38] LABS: Hypochromasia Slight; Lymphocytes 9 % (20-55); Platelet Estimate Increased; Segmented Neutrophils 87 % (50-85); Total Cells Counted 100
[2021-01-02 05:58] LABS: Calcium 9.5 MG/DL (8.5-10.1); Osmolality,Calculated 299.8 MOS/KG (273-304); Potassium 3.8 MMOL/L (3.5-5.1)
[2021-01-02] MEDS: SODIUM CHLORIDE 0.9% IV SCH ×2 (06:23→18:11)
[2021-01-02] MEDS: ACYCLOVIR IV SCH ×2 (06:23→18:11)
[2021-01-02] MEDS: DOCUSATE SODIUM 100 MG CAPSULE PO SCH ×2 (09:21→20:31)
[2021-01-02] MEDS: BACITRACIN OINT 0.9 GM PACK TOP SCH ×2 (09:21→20:32)
[2021-01-02] MEDS: HALOPERIDOL 5 MG TABLET PO SCH ×2 (09:21→20:31)
[2021-01-02] MEDS: MEGESTROL 40 MG TABLET PO SCH (09:21)
[2021-01-02] MEDS: METOPROLOL TARTRATE 50 MG TABLET PO SCH ×2 (09:21→20:31)
[2021-01-02] MEDS: ASPIRIN CHEW 81 MG TABLET PO SCH (09:21)
[2021-01-02] MEDS: POLYETHYLENE GLYCOL POWDER 17 GM PACK PO SCH (09:21)
[2021-01-02] MEDS: LACTULOSE 20 GM/30 ML UDCUP PO SCH ×2 (09:21→20:32)
[2021-01-02] MEDS: DILTIAZEM CD 180 MG CAPSULE PO SCH (10:55)
[2021-01-02 12:11] LABS: ABG Base Excess -0.5 MMOL/L (-2.5-2.5); ABG HCO3 23.2 MMOL/L (20-26); ABG PCO2 33.9 MM HG (35-48); ABG PH 7.453 (7.35-7.45); ABG TCO2 24.2 MMOL/L (23-27)
[2021-01-03] MEDS: ACETAMINOPHEN 325 MG TABLET PO PRN (00:15)
[2021-01-03] MEDS: ceFAZolin 2,000 MG/50 ML DUPLEX IV SCH ×2 (01:26→11:04)
[2021-01-03] MEDS: DOXYCYCLINE HYCLATE INJ 100 MG in SODIUM CHLORIDE 0.9% 100 ML IV SCH (03:27)
[2021-01-03] MEDS: ACYCLOVIR IV SCH (06:11)
[2021-01-03] MEDS: SODIUM CHLORIDE 0.9% IV SCH (06:11)
[2021-01-03] MEDS: ALBUTEROL 2.5 MG/3 ML NEB RESP TX SCH ×2 (06:30→07:16)
[2021-01-03 07:10] LABS: Basophils # 0.1 10*3/uL (0.0-0.2); Basophils % 0.6 % (0.0-0.8); Eosinophils # 0.1 10*3/uL (0.0-0.87); Eosinophils % 0.6 % (0.00-10.9); Hematocrit 26.8 VOL% (42.0-52.0); Hemoglobin 8.2 GM/DL (14.0-18.0); Immature Granulocytes % 3.1 %; Immature Granulocytes Absolute 0.51 #; Lymphocytes # 1.4 10*3/uL (1.4-4.0); Lymphocytes % 8.2 % (21.2-54.2); Mean Corpuscular HGB Conc 30.6 GM/DL (32-36); Mean Corpuscular Volume 93.1 FL (87-102); Mean Platelet Volume 11.4 FL (9.6-12.0); Monocytes % 5.5 % (1.7-12.7); Platelet Count 424 T/CUMM (130-400); Red Blood Count 2.88 MC/CUMM (3.8-5.5); Red Cell Distribution Width 17.6 % (9.3-17.3); White Blood Count 16.5 T/CUMM (4-12)
[2021-01-03 07:29] LABS: Calcium 9.8 MG/DL (8.5-10.1); Osmolality,Calculated 302.8 MOS/KG (273-304); Potassium 4.2 MMOL/L (3.5-5.1)
[2021-01-03 07:46] LABS: Hypochromasia 1+; Lymphocytes 10 % (20-55); Nucleated Red Blood Cells 1 (0-5); Segmented Neutrophils 85 % (50-85); Total Cells Counted 100
[2021-01-03 07:47] LABS: Anisocytosis 1+; Microcytosis 1+; Polychromasia Slight
[2021-01-03 09:26] LABS: % Iron Saturation 9.7 % (18-50)
[2021-01-03] MEDS: DOCUSATE SODIUM 100 MG CAPSULE PO SCH (10:32)
[2021-01-03] MEDS: HALOPERIDOL 5 MG TABLET PO SCH (10:32)
[2021-01-03] MEDS: LACTULOSE 20 GM/30 ML UDCUP PO SCH (10:32)
[2021-01-03] MEDS: BACITRACIN OINT 0.9 GM PACK TOP SCH (10:32)
[2021-01-03] MEDS: ASPIRIN CHEW 81 MG TABLET PO SCH (10:32)
[2021-01-03] MEDS: DILTIAZEM CD 180 MG CAPSULE PO SCH (10:32)
[2021-01-03] MEDS: METOPROLOL TARTRATE 50 MG TABLET PO SCH (10:32)
[2021-01-03] MEDS: POLYETHYLENE GLYCOL POWDER 17 GM PACK PO SCH (10:33)
[2021-01-03] MEDS: MEGESTROL 40 MG TABLET PO SCH (10:33)
[2021-01-03 10:48] LABS: Folate 9.41 NG/ML (5.38-24.0)
[2021-01-03] MEDS ORDERED: PIPERACILLIN/TAZOBACTAM 3,375 MG in SODIUM CHLORIDE 0.9% 100 ML IV SCH (12:00)
[2021-01-03] MEDS ORDERED: metroNIDAZOLE INJ 500 MG/100 ML PREMIX IV SCH (13:00)
[2021-01-03] MEDS ORDERED: LEVALBUTEROL 1.25 MG/3 ML NEB RESP TX SCH (13:00)
[2021-01-03] MEDS ORDERED: OXACILLIN 2,000 MG in SODIUM CHLORIDE 0.9% 100 ML IV SCH (14:00)
[2021-01-03 15:01] VITALS: BP 101/48
== END 2021-01-03 13:18 | disposition expired | DRG 871 ==
LOC: N.5E → SUATTDRO 21:02 → N.TELEN 12-28 09:26
PROVIDERS: ADMIT Internal Medicine; ATTEND Internal Medicine